=== PATIENT | female | born 1980 | race Caucasian/White ===

== ENCOUNTER 2016-07-13 08:27 | Outpatient (RCR) | payer OTHER ==
[~2016-07-13 08:27] MED LIST: LORTAB 5/500 501 TAB PO; NASONEX SPRAY
== END 2016-10-11 ==
LOC: WSOH
DX: Z77.090 Contact with and (suspected) exposure to asbestos (principal)

== ENCOUNTER → 2018-04-08 | Outpatient (CLI) | payer OTHER | LOC: MC.RAD 07:16 | DX: Z12.31 Encounter for screening mammogram for malignant neoplasm of breast (principal) ==

== ENCOUNTER → 2019-06-15 | Outpatient (CLI) | payer OTHER | LOC: MC.RAD 08:21 | DX: Z12.31 Encounter for screening mammogram for malignant neoplasm of breast (principal) ==

== ENCOUNTER → 2020-06-17 | Outpatient (CLI) | payer OTHER | LOC: MC.RAD 09:58 | DX: Z12.31 Encounter for screening mammogram for malignant neoplasm of breast (principal) ==

== ENCOUNTER 2020-11-14 06:41 | Outpatient (CLI) | payer OTHER ==
[2020-11-14] VITALS (7 sets, daily range): BP systolic 108–118; BP diastolic 59–75; PULSE 48–81
[~2020-11-14] VITALS: Ht 167.6 cm; Wt 62.4 kg
[~2020-11-14 06:41] MED LIST changes: +ABX
[2020-11-14 09:57] LABS: GLUCOSE,CSF 52 mg/dL (40-70); TOTAL PROTEIN,CSF 43 mg/dL (15-45)
--- NOTE | 2020-11-14 10:50 | NUR ---
Spoke with Dr Rivera to ask for finalized discharge packet and order from Dr. Borges at 1030 and again at this time. Dr. Rivera states that Katerina is in a procedure, but pt may be discharged as it has been over one hour of recover post LP. Pt remains free of c/o headache or dizziness. She does state she is very hungry, but has refused food or beverage offered while in [place] stating she just needs to go home. DC instructions reviewed with pt and , both express understanding. Pt refuses wheelchair. She and are escorted out to elevator. Pt has steady gait and is free of complaint with activity. Bandaid remains clean, dry and intact.
[2020-11-14 10:52] LABS: CSF APPEARANCE CLEAR; CSF COLOR COLORLESS; CSF RBC 1 /mm3 (0-0)
[2020-11-14 11:00] LABS: CSF MONONUCLEAR 0 % (70-100); CSF POLYMORPHONUCLEAR 0 % (0-6)
== END 2020-11-14 10:50 | disposition home or self-care (01) ==
LOC: COL.RAD 06:41
PROVIDERS: Family Medicine
DX: R51.9 Headache, unspecified (principal); R50.9 Fever, unspecified

== ENCOUNTER → 2021-06-19 | Outpatient (CLI) | payer OTHER | LOC: MC.RAD 07:33 | DX: Z12.31 Encounter for screening mammogram for malignant neoplasm of breast (principal) ==

== ENCOUNTER 2022-04-20 10:34 | Emergency (ER) | payer OTHER ==
[~2022-04-20] VITALS: Ht 167.6 cm; Wt 61.4 kg
[2022-04-20 11:01] VITALS: BP 118/83; TEMP 98.5
[2022-04-20] MEDS ORDERED: SYNTHROID0.088 MG/T PO (11:04)
[2022-04-20] MEDS ORDERED: SINGULAIR 110 MG/TAB PO (11:05)
[2022-04-20 12:25] VITALS: PULSE 68
== END 2022-04-20 12:25 | disposition home or self-care (01) ==
LOC: COL.ER 10:34
DX: S93.402A Sprain of unspecified ligament of left ankle, initial encounter (principal); X50.1XXA Overexertion from prolonged static or awkward postures, initial encounter; Y92.59 Other trade areas as the place of occurrence of the external cause; Y99.0 Civilian activity done for income or pay

== ENCOUNTER → 2023-06-29 | Outpatient (CLI) | payer OTHER ==
[~2023-06-29] MED LIST changes: +SINGULAIR 110 MG/TAB PO; +SYNTHROID0.088 MG/T PO
== END ==
LOC: MC.RAD 08:45
DX: Z12.31 Encounter for screening mammogram for malignant neoplasm of breast (principal)